=== PATIENT | male | born 1960 ===

== ENCOUNTER 2021-01-19 21:36 | Emergency (ER) | payer SELFPAY ==
[~2021-01-19] VITALS: Ht 167.6 cm; Wt 73.5 kg
--- NOTE | 2021-01-19 21:45 | NUR ---
Patient was called to be traiged but patient was not present.
--- NOTE | 2021-01-19 22:00 | NUR ---
Patient came back. Attempted to triaged patient but refused to come back.
--- NOTE | 2021-01-19 22:01 | NUR ---
Called [facility] kevin thomas due to patient refusing to be traiged. Patient place in room 3 with assistance by kevin.
[2021-01-19] MEDS ORDERED: LISI20TA30 PO (22:35)
[2021-01-19] MEDS ORDERED: TAMS-3 PO (22:35)
[2021-01-19] MEDS ORDERED: gabapentin PO (22:35)
[2021-01-19] MEDS ORDERED: ASPIRIN 81 MG TAB.CHEW PO ONE (22:45)
[2021-01-19] MEDS ORDERED: ASPIRIN 81 MG TAB.CHEW ONE (22:56)
[2021-01-19 23:04] LABS: BASOPHILS % (AUTO) 0.8 % (0.0-2.0); EOSINOPHILS # (AUTO) 0.5 K/uL (0.0-0.7); EOSINOPHILS % (AUTO) 7.5 % (0.0-7.0); HEMATOCRIT 42.4 % (36.7-47.1); HEMOGLOBIN 14.1 g/dL (12.5-16.3); LYMPHOCYTES # (AUTO) 1.6 K/uL (20.0-40.0); LYMPHOCYTES % (AUTO) 23.8 % (20.5-51.5); MEAN CORPUSCULAR HEMOGLOBIN 31.7 uug (23.8-33.4); MEAN CORPUSCULAR HGB CONC 33 g/dL (32.5-36.3); MEAN CORPUSCULAR VOLUME 95.1 fL (73.0-96.2); MONOCYTES # (AUTO) 0.7 K/uL (2.0-10.0); MONOCYTES % (AUTO) 10.2 % (0.0-11.0); NEUTROPHILS # (AUTO) 3.8 K/uL (1.8-8.9); NEUTROPHILS % (AUTO) 57.7 % (38.5-71.5); PLATELET COUNT (AUTO) 201 K/uL (152-348); RED BLOOD CELL COUNT(AUTO) 4.46 MIL/uL (4.06-5.63); WHITE BLOOD COUNT (AUTO) 6.6 K/uL (3.6-10.2)
[2021-01-19 23:12] LABS: CREATININE 0.8 mg/dL (0.6-1.3); POTASSIUM 3.5 mmol/L (3.5-5.1)
[2021-01-19 23:24] LABS: BILIRUBIN,DIRECT 0.4 mg/dL (0.0-0.2); BILIRUBIN,TOTAL 0.5 mg/dL (0.2-1.0); TOTAL PROTEIN, SERUM 7.1 g/dL (6.4-8.2)
--- NOTE | 2021-01-20 00:31 | NUR ---
Patient does not wish to proceed with medical care recommended by Dr. VELAZQUEZ. Patient given information related to possible complications, up to and including , which could occur as a result of leaving the hospital at this time. Patient verbalizes understanding of risks involved due to leaving against medical advice. Patient REFUSED TO sign AMA form. IV WAS REMOVED, CATHETER INTACT.
[2021-01-20 00:36] VITALS: BP 113/76
== END 2021-01-20 00:38 | disposition left against medical advice (07) ==
LOC: ER 21:38
DX: R07.9 Chest pain, unspecified (principal); Z20.822 Contact with and (suspected) exposure to COVID-19; R79.1 Abnormal coagulation profile; Z79.899 Other long term (current) drug therapy; Z88.0 Allergy status to penicillin; Z88.2 Allergy status to sulfonamides; N40.0 Benign prostatic hyperplasia without lower urinary tract symptoms
CPT/HCPCS: 36415; 70030-TC; 71045; 85025; 85730; 93005; A4663